=== PATIENT | female | born 1960 | race Caucasian/White ===

== ENCOUNTER 2025-05-29 06:04 | Observation (INO) ==
--- NOTE | 2025-04-05 15:57 | PAT Medication Instructions ---
Medication Instructions Date of Service April 05, 2025 Home Medications Medication Instructions Recorded acetaminophen 500 mg tablet 500 mg PO QID PRN pain #30 tabs 03/28/25 (Acetaminophen Extra Strength) aspirin 81 mg tablet,delayed release (Adult Low Dose Aspirin) 81 mg PO QAM cholecalciferol (vitamin D3) 125 mcg (5,000 unit) tablet (Vitamin D3) 125 mcg PO QAM cyanocobalamin (vitamin B-12) 1,000 mcg tablet 1,000 mcg PO QAM duloxetine 20 mg capsule,delayed release 20 mg PO QAM magnesium 200 mg tablet 200 mg PO QAM acetaminophen 500 mg tablet (Acetaminophen Extra Strength) 500 mg PO QID PRN pain ASK your prescriber and surgeon aspirin 81 mg tablet,delayed release (Adult Low Dose Aspirin) 81 mg PO QAM DO NOT take the morning of surgery cholecalciferol (vitamin D3) 125 mcg (5,000 unit) tablet (Vitamin D3) 125 mcg PO QAM cyanocobalamin (vitamin B-12) 1,000 mcg tablet 1,000 mcg PO QAM magnesium 200 mg tablet 200 mg PO QAM Take morning of surgery With a small sip of water, OTHERWISE NOTHING TO EAT OR DRINK AFTER MIDNIGHT: duloxetine 20 mg capsule,delayed release 20 mg PO QAM acetaminophen 500 mg tablet (Acetaminophen Extra Strength) 500 mg PO QID PRN pain (if needed) Take evening before surgery acetaminophen 500 mg tablet (Acetaminophen Extra Strength) 500 mg PO QID PRN pain (if needed) Other Notes If you have any questions please call us at [phone] or [phone] or [phone] or [phone]
--- NOTE | 2025-04-12 13:31 | Anesthesiology Consultation ---
Date of Service April 12, 2025 Assessment & Plan (1) Encounter for pre-operative examination: Chart Review Chart Review: Acceptable Risk for Surgery and Patient seen in Pre Admission Testing - Patient is NOT an ideal OPJ candidate (currently 23 hour obs) Per PAT appt on 04/12/25, no recent illness/disease exposures, illness related symptoms, or recent illness/disease positive tests. Will leave to surgeon's discretion if preop Covid testing needed Right TKA 01/23/25= Done under SAB at L3-4 with 1 attempt Teaching & Discussion Pre-Anesthesia Teaching/Discussion Notes: Instructed NPO after midnight before surgery,except medications with 15 cc of water. Medication instructions provided according to the [facility] guidelines. History Surgery Operation Date: 05/29/25 07:00 Proposed Procedures p Left Total Knee Arthroplasty - Harish Spain MD Height/Weight Height: 5 ft 1 in Weight: 89 kg Allergies Allergy/AdvReac Type Severity Reaction Status Date / Time amoxicillin Allergy Intermediate Diarrhea Verified 04/05/25 13:16 Medications Home Medications Medication Instructions Recorded Confirmed Last Taken cholecalciferol (vitamin D3) 125 125 mcg PO QAM 12/20/24 04/05/25 01/22/25 08:00 mcg (5,000 unit) tablet (Vitamin D3) cyanocobalamin (vitamin B-12) 1,000 mcg PO QAM 12/20/24 04/05/25 01/22/25 08:00 1,000 mcg tablet duloxetine 20 mg capsule,delayed 20 mg PO QAM 12/20/24 04/05/25 01/22/25 08:00 release magnesium 200 mg tablet 200 mg PO QAM 12/20/24 04/05/25 01/22/25 08:00 acetaminophen 500 mg tablet 500 mg PO QID PRN pain #30 tabs 03/28/25 04/05/25 Unknown (Acetaminophen Extra Strength) aspirin 325 mg tablet 325 mg PO QAM 04/12/25 04/12/25 Unknown Past Medical History Medical History (Updated 04/12/25 @ 15:02 by Joselyn Alexandra PA-C) Arthritis Chronic pain Elevated hemoglobin A1c Hgb A1C 5.9 on 04/12/25 no diabetes medications History of COVID-19 (~10/2019) denies hospitalization-resolved Hx of deep venous thrombosis (~2017) bilat LE's, one in 2000 from a fall, then in 2018 no known cause, on aspirin routine for prevention Hx of Lyme disease (~09/2024) dx approx Sep 2024 > treated> still with residual fatigue and bilat leg pain but not as bad as before Urinary incontinence due to hysterectomy Exercise / Class Metabolic Activity II 4-5 Yardwork/Stairs/Walk up hill (one flight of stairs - no chest pain or SOB ) Past Surgical History Surgical History History of carpal tunnel release Bilateral History of colonoscopy History of hysterectomy History of tooth extraction Upper Denture/Lower Partial History of total right knee replacement 01/2025 Hx of ovarian cystectomy Past Anesthesia History No Hx of Anesthesia Complications and No Family Hx of Anesthesia Complications (with exception to father - slow wake - groggy- no reintubation ) History of PONV History of PONV (mostly due to pain medication per patient ) and Hx of Motion Sickness Social History Smoking Status: Never smoker Do You Dip or Chew Tobacco: No Hx Alcohol Use: No Hx Substance Use: No substance use type: does not use Review of Systems - Hx of snoring- no hx of sleep study Patient denies chest pain, shortness of breath, dyspnea on exertion, reflux, cough, wheezing, palpitations. No hx of seizures, stroke, MA. No hx of blood transfusions Physical Exam Vital Signs VITALS BP 110/68 P 84 TEMP 98.1 SP02 94% RESP 16 Constitutional no acute distress ENMT Mouth: + small oral opening; no TMJ clicking Thyromental Distance: > or= 3.5 Finger Breadths (3.5) Mallampati Class: III Full upper denture Partial bottom denture Neck neck extension not limited Respiratory normal respiratory effort; no respiratory distress Auscultation: lungs clear to auscultation bilaterally; no wheezes Cardiovascular Rate/Rhythm: regular rate and regular rhythm Heart Sounds: no murmur Vessels: no carotid bruit Musculoskeletal Spine: no pain with cervical ROM Extremities: extremities normal to inspection Psychiatric Orientation: alert Lab Results Anesthesia Preop Results Results Anesthesia Widget: WBC 7.39 K/ul (4.8-10.8) 04/12/25 Hgb 12.7 g/dl (12.0-16.0) 04/12/25 Hct 38.5 % (37.0-47.0) 04/12/25 Plt 360 K/uL (130-400) 04/12/25 Na 138 mmol/L (136-145) 04/12/25 K 4.4 mmol/L (3.5-5.1) 04/12/25 Cl 103 mmol/L (98-107) 04/12/25 CO2 29 mmol/L (21-32) 04/12/25 BUN 23 mg/dl (6-23) 04/12/25 Creat 0.77 mg/dl (0.6-1.2) 04/12/25 Glucose Level 133 mg/dl (70-99(Fasting)) H 04/12/25 PT 10.5 Seconds (9.0-12.0) 04/12/25 PTT 27 Seconds (21-31) 04/12/25 INR 1.0 (0.9-1.1) 04/12/25 HA1c 5.9 % (4.5-5.6) H 04/12/25 Blood Type A Positive 04/12/25 Antibody Screen NEGATIVE 04/12/25 Testing Electrocardiogram Date: 12/28/24 NSR, rate [address] & T wave abnormality, consider inferolateral ischemia (Per 12/28/24 PCP notation regarding EKG: "to [facility], no change to ECG from 2016 to 2024."; tolerated 01/23/25 right TKA without issues) Chest X-Ray Date: 12/28/24 No acute findings.
--- NOTE | 2025-05-23 20:12 | History & Physical Report ---
Date of Service May 23, 2025 Assessment & Plan (1) Left knee DJD: 64-year-old female former 4 months out from right knee replacement with advanced left knee DJD. She has failed conservative measures. She does a history of DVT x 2 in the past with a negative workup. She would like to proceed with a knee r eplacement on the left side. NuPrep plan will take with the op new left total knee replacement for the risks met this procedure explained. Informed consent was obtained. Use Xarelto for DVT prophylaxis. She is hoping to go to [facility] for rehab as she went home last time and struggled a bit. I will see her back 2 weeks postop. (2) Status post right knee replacement: (3) Elevated hemoglobin A1c: (4) Hx of deep venous thrombosis: History of Present Illness Chief Complaint: . Persistent left knee pain discomfort and stiffness. Primary Care Provider: Cayetano Bojorquez MD . The patient is a 64-year-old female from [facility] who presents for surgical treatment of her left knee. She has a long history of knee problems and had her right knee replaced about 4 months ago. She has done remarkably well from this side. We also recently did a left carpal tunnel release about 2 months ago. Her left knee continues to bother her and limit her. To been through extensive conservative treatment which really does not help at all anymore. She is happy with the right knee and would like to have her left knee replaced. Of note, the patient does have a history of a DVT in the past x 2 with a negative workup. Will use Xarelto for DVT prophylaxis. Allergies Allergy/AdvReac Type Severity Reaction Status Date / Time amoxicillin Allergy Intermediate Diarrhea Verified 04/05/25 13:16 Home Medications Medication Instructions Recorded Confirmed Type cholecalciferol (vitamin D3) 125 125 mcg PO QAM 12/20/24 04/05/25 History mcg (5,000 unit) tablet (Vitamin D3) cyanocobalamin (vitamin B-12) 1,000 mcg PO QAM 12/20/24 04/05/25 History 1,000 mcg tablet duloxetine 20 mg capsule,delayed 20 mg PO QAM 12/20/24 04/05/25 History release magnesium 200 mg tablet 200 mg PO QAM 12/20/24 04/05/25 History acetaminophen 500 mg tablet 500 mg PO QID PRN pain #30 tabs 03/28/25 04/05/25 Rx (Acetaminophen Extra Strength) aspirin 325 mg tablet 325 mg PO QAM 04/12/25 04/12/25 History Past Med/Surg History Problem List (Updated 05/23/25 @ 20:11 by Harish Spain MD) Left knee DJD Status post right knee replacement Left carpal tunnel syndrome Arthritis of both knees Medical History Elevated hemoglobin A1c Hgb A1C 5.9 on 04/12/25 no diabetes medications Urinary incontinence due to hysterectomy History of COVID-19 (~10/2019) denies hospitalization-resolved Chronic pain Hx of Lyme disease (~09/2024) dx approx Sep 2024 > treated> still with residual fatigue and bilat leg pain but not as bad as before Arthritis Hx of deep venous thrombosis (~2017) bilat LE's, one in 2000 from a fall, then in 2017 no known cause, on aspirin routine for prevention Surgical History History of total right knee replacement 01/2025 History of carpal tunnel release Bilateral History of colonoscopy History of hysterectomy Hx of ovarian cystectomy History of tooth extraction Upper Denture/Lower Partial Social History Smoking Status: Never smoker Second Hand Exposure: Yes (while growing up); Do You Dip or Chew Tobacco: No; Hx Alcohol Use: No Hx Substance Use: No Preferred Language: Chilean Communication Ability: Effective Fisherman Helper Required: No Beliefs That Will Affect Care: None Current Living Situation: Alone Feels Safe at Home: Yes Assistive Devices: Denture - Upper, Glasses and Other Review of Systems All systems reviewed & are unremarkable except as noted in HPI & below. Physical Exam . Physical examination was a pleasant middle-age female. Looks be in pretty good health. Examination of the left knee reveals a patient who walks independently. She got varus alignment to her knee. She got bony hypertrophy medially. Range of motion about 10 degrees short of full extension about 85 degrees of flexion. Fairly stiff knee in flexion. No pain with hip motion. Examination right nibbles well-healed incision. She has anatomic alignment to the knee. Range of motion 5 to about 90. Good straight leg raise. No pain with hip motion. Constitutional WD/WN, vitals as above Respiratory normal respiratory effort, lungs clear to auscultation Cardiovascular RRR, no murmur, no edema Gastrointestinal (Abdomen) normal bowel sounds, soft, nontender, no hepatosplenomegaly Results & Data Results & Data Laboratory Results . Diagnostic Findings . PG Care Time/CCT Total # of Minutes Spent Total Time Spent with Patient: Total time spent is greater than 50% in coordination of care (as documented) at patient's floor/unit and/or counseling patient: Coding Level of Care Code None Diagnoses Left knee DJD M17.12 Status post right knee replacement Z96.651 Elevated hemoglobin A1c R73.09 Hx of deep venous thrombosis Z86.718
[2025-05-29] MEDS ORDERED: PROPOFOL IV EMULSION 10 MG/ML 100 ML VIAL IV ONE ×2 (06:19→07:32)
[2025-05-29] MEDS: ACETAMINOPHEN 500 MG TAB PO SCH ×2 (06:34→14:41)
[2025-05-29] MEDS: METOCLOPRAMIDE HCL 10 MG TABLET PO SCH (06:34)
[2025-05-29] MEDS: CeleBREX 200 MG CAP PO SCH (06:34)
[2025-05-29] MEDS: LR 60ML/HR IV SCH (06:34)
[2025-05-29] MEDS: FAMOTIDINE 20 MG TAB PO SCH (06:34)
[2025-05-29] MEDS ORDERED: BUPIVACAINE 0.25% PF 30 ML VIAL ONE (06:35)
[2025-05-29] MEDS ORDERED: BUPIVACAINE 0.5 % 5 MG/1 ML PF 10ML VIAL ONE (06:35)
--- NOTE | 2025-05-29 06:44 | History & Physical Bridge Note ---
Date of Service May 29, 2025 History & Physical Bridge Note I have examined the patient, reviewed the History & Physical and in the interval since the performance of the History & Physical I have noted the following changes of clinical significance: no changes noted
[2025-05-29] MEDS: LR 500ML BOLUS, THEN 15ML/HR IV SCH (06:49)
[2025-05-29] MEDS: dexAMETHasone**PF** 10 MG/ML VIAL IV SCH (06:50)
[2025-05-29] MEDS ORDERED: MIDAZOLAM HCL 1 MG/ML 2ML VIAL ONE (07:32)
[2025-05-29] MEDS ORDERED: LIDOCAINE 2% 2 ML VIAL/AMP(20MG/ML) INFIL ONE (07:32)
[2025-05-29] MEDS ORDERED: ATROPINE SULFATE 0.1 MG/ML 10ML SYR IV PRN (07:52)
[2025-05-29] MEDS ORDERED: ONDANSETRON INJ 2 MG/ML 2 ML VIAL IV PRN (07:52)
[2025-05-29] MEDS ORDERED: ePHEDrine sulfate 50 MG/5 ML SYR ONE (09:53)
[2025-05-29] MEDS ORDERED: ONDANSETRON INJ 2 MG/ML 2 ML VIAL ONE (09:56)
[2025-05-29] MEDS: ORTHO JOINT ANESTHETIC ONE (10:08)
[2025-05-29] MEDS: ROPIV 0.5% 246mg, Ketorolac 30mg, EPINEPHrine 0.5mg in NSS INFIL SCH (10:08)
--- NOTE | 2025-05-29 11:26 | Operative Report ---
PG Post Operative Report Pre & Post Diagnosis Operation Date: 05/29/25 08:50 Pre-Op Diagnosis: Left Knee Degenerative Joint Disease Post-Op Diagnosis: Left Knee Degenerative Joint Disease I identified the patient and participated in the time-out.: Yes Procedure Operation Date: 05/29/25 08:50 Actual Procedures p Left Total Knee Arthroplasty(Left) - Harish Spain MD Surgeon Harish Spain MD Stock Blender Orion Mendieta PA-C Estimated Blood Loss 50 Findings Consistent with Post-Op Diagnosis Operative findings revealed a very stiff knee preoperatively. She had about a 15 degree flexion contracture and could only bend about 80 degrees. She had diffuse grade 4 [id number] disease in all 3 compartments. Specimens Left knee sent for pathology. Anesthesia Type Spinal MAC Complications none Disposition Accompanied Patient To Recovery: No Indications Patient is a 64-year-old fairly active bess whose had a long history of bilateral knee pain discomfort that gotten significant worse over the years. She has failed conservative treatment. She became essentially debilitated by her knee arthritis. She underwent a right knee replacement about 4 months ago and is doing quite well from that functionally. She continued to be limited by left knee pain discomfort. She elected to do a left total knee arthroplasty. Description of Procedure Operative implants consist of: 1. Biomet Vanguard size 65 left posterior stabilized femoral component. 2. Biomet size 67 tibial tray. 3. 14 mm PS plus insert. 4. 28 x 8 all poly patella. The patient was taken to the op room, identified, and placed on the operating table in the supine position. All contact areas were appropriately padded. IV antibiotics provided by anesthesia team. A spinal anesthetic and adductor canal block had been provided in the holding area. A Garcia catheter was placed in sterile fashion. A left thigh tourniquet was then placed. The left lower extremities then prepped and draped in usual sterile fashion. The left leg was elevated exsanguinated with the use of an Esmarch and tourniquet placed at 300 mmHg. An anterior approach left knee was then performed to longitudinal incision centered over the patella. Sharp dissection was Through subcutaneous tissue down the extensor mechanism. A medial parapatellar arthrotomy incision was made. Some subperiosteal dissection was carried out medially. The fat pad was resected with release patella tendon. The lateral patellofemoral ligament was released. Patella was subluxated laterally and knee was flexed. The osteophytes taken distal femur. The ACL and PCL were then released from distal femur and the tibia subluxated anteriorly. The external tibial alignment jig was then placed on the anterior face the tibia adjusted 14 mm medially. The proximal tibial cut was made essentially flush with the most deficient aspect of the posterior medial tibial plateau. Some osteophytes taken off medially. The tibia sized to a size 67. Attention drawn the femur. The distal femur was entered with a sharp drill. Intramedullary canal was suction. A left 5 degree valgus cutting guide was placed. The distal femoral cutting block was pinned in place. The distal femoral cut was made take an additional 5 mm of bone off distal femur due to her flexion contracture. The femur was then sized to a size 65. The AP cutting block was pinned parallel to the epicondylar axis which was 5 degrees of external rotation. The anterior cut, anterior chamfer, posterior cut, posterior chamfer cuts were made. The box cutting guide was placed and just slight lateral box cut was made. The knee was flexed. The remnants of the medial and lateral menisci were excised. The osteophytes taken off the posterior aspect of femur. A trial femoral component was placed. The tibial tray was pinned in Sandra external rotation and the drill and stem punch were used to create defect in proximal tibia for the tibial tray. Knee was then then trialed. The 14 mm insert fit most appropriately. She continued to have a little bit of medial laxity due to the stripping of the medial side. We elected to place a PS plus insert. Despite her knee being pretty well-balanced even after this. She really only got comfortably flexion to about 90 degrees. Attention the patella. The patella was cleaned of all soft tissue. Patella thickness measured 21 mm in thickness was cut down to 13. Sized to a size 28 patella. The lug holes were drilled with a 28 patella. Lateral osteophytes removed. Patella button was placed. Knee was taken through range of motion patella tracked nicely with no thumbs test once the tourniquet was let down. It did not track as well when the tourniquet was up. She did have a little bit of patella Baha. We elected to place these implants. All trial implants were removed. A bone plug was placed in the distal femur limit blood loss. A double batch Palacos G cement was mixed. A Biomet Vanguard size 65 left posterior stabilized femoral component, a size 67 tibial tray, a 14 mm PS plus insert, and a 28 x 8 all poly patella then cemented in place. Knee was brought out into full extension till cement hardened. Final cement check was then performed. The pericapsular tissues were injected with a total of 100 cc of Ortho mix. The patient did receive 1 g tranexamic acid. The tourniquet was then let down for final tourniquet time 60 minutes. Hemostasis surges electrocautery. The wounds were once again irrigated and the extensor Meclomen then closed with combination 1 PDS suture #1 Vicryl suture in a [id number] fashion. Extensor Meclomen checked found to be intact with subcutaneous tissue then closed with 2 Dexon suture in a buried interrupted fashion skin was closed skin smitha. Leg was then cleaned and dried a sterile dressing with Xeroform, 4 fours, sterile cast padding, Devin bandage were applied. Patient then transferred to the recovery room in stable condition. Patient tolerated procedure well and there were no complications. Orion Mendieta, physician medical services assistant, was present for the entire procedure. His assistance required for proper patient positioning, prepping and draping, surgical exposure, retraction, performed the technical details of the operation, placement implants, closure of the incision site, placement of the postoperative sterile bandage. I attest to the content of the Intraoperative Record and any orders documented therein. Any exceptions are noted below.
--- NOTE | 2025-05-29 11:41 | XRay Report ---
XR knee LT 1 or 2V routine CLINICAL HISTORY: Surgical Post Op COMPARISON: None FINDINGS: Left knee prosthesis shows no hardware complication. There is expected soft tissue gas. Sk in smitha are present. IMPRESSION: Unremarkable postoperative exam. ACT 112: Negative or not required by law. Electronically signed by: Matt Dodson M.D. 05/29/2025 11:39 AM
[2025-05-29] MEDS ORDERED: HYDROmorphone INJ 0.5 MG/0.5 ML SYR IV PRN (13:36)
[2025-05-29] MEDS ORDERED: diphenhydrAMINE Capsule 25 MG CAP PO PRN (13:36)
[2025-05-29] MEDS ORDERED: METOCLOPRAMIDE HCL INJ 5 MG/ML 2 ML VIAL IV PRN (13:36)
[2025-05-29] MEDS ORDERED: ALUMINUM/MAGNESIUM SUSP 30 ML UDC PO PRN (13:36)
[2025-05-29] MEDS ORDERED: NALOXONE HCL 0.4 MG/1 ML VIAL/CARP IV PRN (13:36)
[2025-05-29] MEDS ORDERED: MAGNESIUM HYDROXIDE SUSP 30 ML UDC PO PRN (13:36)
--- NOTE | 2025-05-29 14:14 | Anesthesiology Progress Note ---
Date of Service May 29, 2025 Anesthesia Post Procedure Vital Signs Vital Signs: Temp Pulse Pulse Resp BP BP Pulse Ox 05/29/25 14:13 36.5 C 105 H 16 119/67 95 05/29/25 13:36 36.7 C 102 H 16 120/62 94 05/29/25 13:00 93 H 17 117/57 L 94 05/29/25 12:45 96 H 15 114/57 L 93 05/29/25 12:30 86 14 105/58 L 94 05/29/25 12:15 77 16 109/55 L 94 05/29/25 12:00 87 15 110/56 L 93 05/29/25 11:50 36.3 C L 84 15 105/57 L 93 05/29/25 11:40 72 16 107/50 L 96 05/29/25 11:30 73 14 111/58 L 93 05/29/25 11:23 36.3 C L 87 16 117/59 L 96 05/29/25 06:26 36.4 C L 72 16 126/53 L 96 O2 Del Method O2 Flow Rate 05/29/25 14:13 Nasal Cannula 2 05/29/25 13:36 Nasal Cannula 2 05/29/25 13:00 Nasal Cannula 2 05/29/25 12:45 Nasal Cannula 2 05/29/25 12:30 Nasal Cannula 2 05/29/25 12:15 Nasal Cannula 2 05/29/25 12:00 Nasal Cannula 2 05/29/25 11:50 Nasal Cannula 2 05/29/25 11:40 Oxymask 3 05/29/25 11:30 Oxymask 7 05/29/25 11:23 Oxymask 7 05/29/25 06:26 Room Air Transfer of Care Handoff Completed per policy Notes Mental Status: alert / awake / arousable and participated in evaluation Patient Amnestic to Procedure: Yes Nausea / Vomiting: adequately controlled Pain: adequately controlled Airway Patency, RR, SpO2: stable & adequate BP & HR: stable & adequate Hydration State: stable & adequate Neuraxial Anesthesia: was administered and sensory block is resolving Anesthetic Complications: no major complications apparent and Pt Satisfied with anesthetic care
[2025-05-29] MEDS: KETOROLAC 30 MG/ML VIAL IV SCH (14:42)
[2025-05-29] MEDS: SODIUM CHLORIDE 0.9% 1,000 ML IV SCH (15:51)
[2025-05-29] MEDS: ASCORBIC ACID 500 MG TAB PO SCH (16:59)
[2025-05-29] MEDS: TRANEXAMIC ACID / 0.7% NACL 1,000 MG/100 ML BAG IV SCH (16:59)
[2025-05-29] MEDS: DOCUSATE SODIUM 100 MG CAP PO SCH (21:15)
[2025-05-29] MEDS: SENNA 8.6 MG TAB PO SCH (21:15)
[2025-05-30] MEDS: ONDANSETRON INJ 2 MG/ML 2 ML VIAL IV PRN (00:07)
[2025-05-30 06:33] LABS: Hematocrit (blood only) 31.6 % (37.0-47.0); Hemoglobin 10.7 g/dl (12.0-16.0); Mean Corpuscular Hemoglobin 29.6 pg (25.0-34.0); Mean Corpuscular Volume 87.5 fL (80.0-100.0); Platelet Count 265 K/uL (130-400); RDW Standard Deviation 42.3 fL (36.4-46.3); Red Blood Count 3.61 M/uL (4.20-5.40); White Blood Count 8.79 K/ul (4.8-10.8)
[2025-05-30 06:51] LABS: Anion Gap 7.0 (3-11); Blood Urea Nitrogen 20.0 mg/dl (6-23); Calcium 8.7 mg/dl (8.6-10.3); Carbon Dioxide 27.0 mmol/L (21-32); Chloride 104.0 mmol/L (98-107); Creatinine Clr Calc Pharmacy 64.8 ml/min; Glucose 122.0 mg/dl (70-99(Fasting)); Potassium 3.9 mmol/L (3.5-5.1); Sodium 138.0 mmol/L (136-145)
--- NOTE | 2025-05-30 07:47 | Orthopedic Progress Note ---
Date of Service May 30, 2025 Assessment & Plan (1) Status post total left knee replacement: * Continue Current Treatment * Disposition: home * Daily treatment: Physical Therapy/ Occupational Therapy per protocol * Weight bearing status: WBAT * Continue to monitor for ABLA * Pain control * DVT prophylaxis, ASA * Office/hospital f/u 2 weeks for progress check and staple/suture removal * Plan for discharge today pending PT/OT clearance Subjective .Active Problems: S/p left TKA POD 1 64 y/o female s/p left TKA. Doing well overall, pain managed and improved function. Denies fever/chills, chest pain/SOB, nausea/vomiting. Otherwise no complaints. Review of Systems All systems reviewed & are unremarkable except as noted in HPI & below. Physical Exam . * General: Alert and oriented, no acute distress * Constitutional: well-developed, well-nourished. * Respiratory: Normal respiratory effort, no distress * Gastrointestinal: No tenderness to palpation, no rigidity or guarding. * Skin: No rash or lesion. * Neurologic: Grossly normal * Musculoskeletal: left knee surgical dressing CDI, not removed for exam. Otherwise no obvious deformity or overlying skin changes RLE. Diffuse TTP distal thigh and knee region. Otherwise no specific tenderness of proximal thigh, lower leg, foot/ankle. AROM knee flexion 60 degrees. AROM foot/ankle intact. Sensation intact plantar/dorsal foot. Brisk capillary refill. Results & Data Results & Data Laboratory Results . Diagnostic Findings . Knee X-Ray 05/29/25 11:19 XR knee LT 1 or 2V routine CLINICAL HISTORY: Surgical Post Op COMPARISON: None FINDINGS: Left knee prosthesis shows no hardware complication. There is expected soft tissue gas. Skin smitha are present. IMPRESSION: Unremarkable postoperative exam. ACT 112: Negative or not required by law. Electronically signed by: Matt Dodson M.D. 05/29/2025 11:39 AM PG Care Time/CCT Total # of Minutes Spent Total Time Spent with Patient: Total time spent is greater than 50% in coordination of care (as documented) at patient's floor/unit and/or counseling patient: Coding Level of Care Code 34372 Post Operative Follow-Up Diagnoses Status post total left knee replacement Z96.652
[2025-05-30] MEDS: MAGNESIUM OXIDE 400 MG TAB PO SCH (08:17)
[2025-05-30] MEDS: CHOLECALCIFEROL 125 MCG (5,000 UNITS) TAB PO SCH (08:17)
[2025-05-30] MEDS: dexAMETHasone 10 MG in SYRINGE 0 ML IV SCH (08:19)
[2025-05-30 08:37] VITALS: BP 125/62; PULSE 77; RESP 17; TEMP 97.5; O2SAT 94
[2025-05-30] MEDS ORDERED: CYANOCOBALAMIN (B-12) 500 MCG TABLET PO SCH (09:00)
[2025-05-30] MEDS ORDERED: MULTIVITAMIN TAB PO SCH (09:00)
[2025-05-30] MEDS ORDERED: RIVAROXABAN 10 MG TABLET PO SCH (12:00)
== END 2025-05-30 12:40 | disposition home health service (06) | DRG 470 ==
LOC: ASU 06:04 → 3E 11:19 → INTOOBSV 11:19